=== PATIENT | male | born 1960 | race African-American/Black ===

== ENCOUNTER 2021-03-09 06:49 | Outpatient (REF) | payer MEDICAID, SELFPAY ==
[2021-03-09 08:37] LABS: Hematocrit 41.1 % (42-52); Hemoglobin 13.3 g/dl (14.0-18.0); Mean Corpuscular HGB Conc 32.4 g/dl (31.0-36.0); Mean Corpuscular Hemoglobin 29.2 pg (27.0-33.0); Mean Corpuscular Volume 90.1 fL (80-98); Mean Platelet Volume 11.3 fL (9.4-12.4); Platelet Count 230 X10*3/uL (160-400); Red Blood Count 4.56 X10*6/uL (4.60-5.80); Red Cell Distribution Width 12.1 % (11.0-16.0)
[2021-03-09 08:47] LABS: Creatinine Urine 154.63 mg/dL; Microalbum/Creatinine Ratio Ur 5.1 ug/mg cr
[2021-03-09 08:58] LABS: Alanine Aminotransferase 33 U/L (0-40); Alkaline Phosphatase 85 U/L (39-117); Anion Gap 12 (12-20); Aspartate Amino Transferase 19 U/L (5-37); Bilirubin Total 0.8 mg/dL (0.0-1.0); Blood Urea Nitrogen 12 mg/dL (9-16); Calcium 9.4 mg/dL (8.4-10.2); Carbon Dioxide 27 mmol/L (22-29); Chloride 102 mmol/L (96-108); Cholesterol 103 mg/dL; Estimated Glomerular Filt Rate > 60; Glucose Random 313 mg/dL (60-115); HDL Cholesterol 32 mg/dL; LDL Cholesterol Calculated 50 mg/dl; Potassium 4.3 mmol/L (3.3-5.1); Sodium 137 mmol/L (135-145); Total Protein 6.5 g/dL (6.5-8.0); Triglycerides 106 mg/dL
[2021-03-09 09:05] LABS: Thyroid Stimulating Hormone 1.42 uIU/mL (0.32-4.0)
[2021-03-09 10:28] LABS: Estimated Average Glucose 252 mg/dL; Hemoglobin A1c % 10.4 %
== END 2021-03-09 06:50 | disposition home or self-care (01) ==
LOC: HO.LAB 06:49
PROVIDERS: PCP Internal Medicine; Visit Provider Internal Medicine
DX: E11.9 Type 2 diabetes mellitus without complications (principal); I10 Essential (primary) hypertension
CPT/HCPCS: 36415; 80053; 80061; 82043; 83036; 84443; 85027